=== PATIENT | female | born 1995 | race African-American/Black ===

== ENCOUNTER 2016-11-13 21:31 | Emergency (ER) | payer OTHER, MEDICAID ==
[~2016-11-13] VITALS: Ht 167.6 cm; Wt 80.0 kg
[2016-11-13 21:53] VITALS: BP 118/73; PULSE 86; RESP 18; TEMP 97.1; O2SAT 100
[2016-11-13] MEDS ORDERED: CYCL1TAB29 PO (22:28)
[2016-11-13] MEDS ORDERED: DICL50TA3 PO (22:28)
[2016-11-13] MEDS ORDERED: NAPROXEN 500 MG TAB PO ONE (22:30)
[2016-11-13] MEDS ORDERED: CYCLOBENZAPRINE HCL 10 MG TAB PO ONE (22:30)
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
[2016-11-13 23:27] VITALS: BP 124/74
== END 2016-11-14 00:27 | disposition home or self-care (01) ==
LOC: NEDAMB 21:31
DX: M54.5 Low back pain (principal); V43.53XA Car driver injured in collision with pick-up truck in traffic accident, initial encounter; Y93.9 Activity, unspecified; Y92.9 Unspecified place or not applicable; Y99.9 Unspecified external cause status
CPT/HCPCS: 84703; 99284